=== PATIENT | male | born 1945 | race Caucasian/White ===

== ENCOUNTER 2018-06-08 02:31 | Inpatient (IN) | payer MEDICARE ==
[2018-06-08] VITALS (7 sets, daily range): BP systolic 150–198; BP diastolic 66–99
[~2018-06-08] VITALS: Ht 175.3 cm; Wt 95.7 kg
[2018-06-08] MEDS ORDERED: PRINIVIL20 MG PO (02:41)
[2018-06-08] MEDS ORDERED: OMEPRAZOLE 20 M20 M1 PO (02:41)
[2018-06-08] MEDS ORDERED: AMLODIPINE BESY10 MG PO (02:42)
[2018-06-08] MEDS ORDERED: HYDROCHLOROTHIA25 M2 PO (02:42)
[2018-06-08] MEDS ORDERED: BENZONATATE200 MG PO (02:42)
[2018-06-08] MEDS ORDERED: MEDROLDOSEPACK PO (02:43)
[2018-06-08 03:06] LABS: ABSOLUTE BASOPHILS 0.1 thou/uL (0.0-0.2); ABSOLUTE EOSINOPHILS 0.1 thou/uL (0.0-0.7); ABSOLUTE MONOCYTES 1.6 thou/uL (0.0-1.2); ABSOLUTE NEUTROPHILS 8.9 thou/uL (1.6-8.1); BASOPHILS 0.7 %; EOSINOPHILS 0.9 %; HEMOGLOBIN 15.3 gm/dL (14.0-18.0); LYMPHOCYTES 15.4 %; MCH 31.3 pg (26.0-34.0); MCV 92.2 fL (80.0-100.0); MONOCYTES 12.8 %; MPV 8.2 fl. (7.2-11.1); NUCLEATED RBCS 0 /100WBC; PLATELET COUNT* 260 thou/uL (150-400); POLYS 70.2 %; RBC 4.89 mil/uL (4.50-6.00); RDW-CV 13.3 % (10.5-14.5); WBC 12.7 thou/uL (4.0-11.0)
[2018-06-08 03:22] LABS: APTT 26.4 Seconds (25.0-31.3); PROTIME 10.1 Seconds (9.20-11.50)
[2018-06-08 03:24] LABS: ANION GAP 7 mmol/L (7-16); BUN 11 mg/dL (7-18); CALCIUM 8.9 mg/dL (8.5-10.1); CHLORIDE 104 mmol/L (98-107); CO2 30 mmol/L (21-32); CREATININE 0.8 mg/dL (0.6-1.3); GLUCOSE 137 mg/dL (70-99); POTASSIUM 3.7 mmol/L (3.5-5.1); SODIUM 141 mmol/L (136-145)
[2018-06-08 03:37] LABS: ALKALINE PHOSPHATASE 64 U/L (46-116); LIPASE 138 U/L (73-393); MAGNESIUM 2.2 mg/dL (1.8-2.4); NT-PRO BRAIN NAT PEPTIDE 91 pg/mL (<300); SGOT 23 U/L (15-37); SGPT 65 U/L (30-65); TOTAL BILIRUBIN 0.4 mg/dL (<0.1-1.0); TOTAL PROTEIN 8.3 g/dL (6.4-8.2); TROPONIN-I LEVEL <0.06 ng/mL (<0.06)
--- NOTE | 2018-06-08 11:26 | NUR ---
ASSUMED CARE OF PATIENT THIS AM AT 0730. PATIENT IS ALERT AND ORIENTED X 4. HE DENIES PAIN AND DISCOMFORT. PATIENT HAS BEEN UP IN THE ROOM INDEPENDENTLY HE REMAINS ON O2 AT 2 LITERS NC. PATIENT DENIES SOA AT THIS TIME. NO SPUTUM PRODUCTION NOTED. TELE SHOWS NSR. WILL CONTINUE TO MONITOR RESPIRATORY STATUS.
[2018-06-09 04:27] VITALS: BP 151/70
[2018-06-09 04:56] LABS: HEMATOCRIT 41.3 % (42.0-52.0); MCH 31.2 pg (26.0-34.0); MCHC 33.9 g/dL (28.0-37.0); MCV 92.1 fL (80.0-100.0); MPV 8.6 fl. (7.2-11.1); RBC 4.48 mil/uL (4.50-6.00); RDW-CV 13.3 % (10.5-14.5); WBC 12.4 thou/uL (4.0-11.0)
--- NOTE | 2018-06-09 05:07 | NUR ---
RECEIEVED REPORT AND ASSUMED CARE AT 1900. VSS. CARDIAC MONITORING IN PLACE. PT DENIES ANY COMPLAINTS OF PAIN. ASSESSMENT COMPLETED CHARTED. PT UP AD ABBY IN ROOM, ON 2L NC. PT REPORTED NOT BEING ABLE TO SLEEP LAST FEW NIGHTS. REQUESTED PRN MEDICATION, SENT REQUEST TO DR AND PLACED IN MAR PER DR VERBAL ORDERS. BED LOCKED IN LOWEST POSITION, CALL LIGHT WITHIN REACH. HOURLY ROUNDING COMPLETED AND ALL NEEDS MET. PT REPORTED TROUBLE WITH SLEEPING A "FLUTTER" FEELING IN HIS ABD LRQ, DOES NOT INVOLVE PAIN, NOT TENDER WHEN PALPATED. STATES THE FEELING WILL WAKE HIM UP, AND THAT HE HAS IBS WHICH HAS BEEN WORSE THE LAST MONTH. WILL REPORT TO NEXT SHIFT AND CONTINUE TO MONITOR FOR REMAINDER OF THE SHIFT
[2018-06-09 05:31] LABS: ALBUMIN 3.5 g/dL (3.4-5.0); MAGNESIUM 2.2 mg/dL (1.8-2.4); POTASSIUM 3.9 mmol/L (3.5-5.1); TOTAL BILIRUBIN 0.4 mg/dL (<0.1-1.0); TOTAL PROTEIN 6.9 g/dL (6.4-8.2)
[2018-06-09 08:00] VITALS: BP 145/77
[2018-06-09 12:34] VITALS: BP 164/83
[2018-06-09] MEDS ORDERED: IPRAT-ALBUT 0.5-3 ML INH (13:31)
[2018-06-09] MEDS ORDERED: LEVAQUIN 500 M500 M2 PO (13:34)
[2018-06-09] MEDS ORDERED: AMBIEN 5 MG TABL5 M1 PO (13:37)
[2018-06-09 13:39] VITALS: BP 164/83
--- NOTE | 2018-06-09 13:46 | NUR ---
ASSUMED CARE OF PATIENT THIS AM AT 0730. PATIENT IS ALERT AND ORIENTED X 4. HE DENIES PAIN AND SOA THIS AM. PATIENT HAS BEEN UP IN THE ROOM AND HALLS TODAY. IS GIVEN TO PATIENT AND PATIENT INSTRUCTED ON THE USE. TELE SHOWS NSR TODAY. DR WEIR IN TO ROUND AND DISCHARGE ORDERS WERE WRITTEN. PATIENT HAS BEEN UP TO THE SHOWER TODAY.
--- NOTE | 2018-06-09 14:56 | EKG ---
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
[2018-06-09] MEDS ORDERED: NEBULIZER MISCELL (16:15)
== END 2018-06-09 14:46 | disposition home or self-care (01) | DRG 872 ==
LOC: M.ERS 02:31 → M.TBA-ER 03:36 → M.2W 03:36
PROVIDERS: Family Medicine; Internal Medicine; ADMIT Internal Medicine
DX: A41.9 Sepsis, unspecified organism (principal); J44.0 Chronic obstructive pulmonary disease with (acute) lower respiratory infection; J44.1 Chronic obstructive pulmonary disease with (acute) exacerbation; I10 Essential (primary) hypertension; G89.29 Other chronic pain; M54.9 Dorsalgia, unspecified; Z87.891 Personal history of nicotine dependence; Z79.899 Other long term (current) drug therapy; J20.9 Acute bronchitis, unspecified